=== PATIENT | female | born 1985 | race Caucasian/White ===

== ENCOUNTER 2017-02-15 15:37 | Observation (INO) | payer OTHER ==
[~2017-02-15 15:37] MED LIST: ONDANSETRON HCL 4 MG/2 ML VIAL IV PUSH ONE; PROPOFOL 200 MG/20 ML AMP IV ONE
[2017-02-15 16:00] VITALS: BP 126/71; PULSE 75; RESP 16; TEMP 98.4; O2SAT 98
[2017-02-15] MEDS ORDERED: BUPIVACAINE/EPINEPHRINE 0.25% 50 ML VIAL ONE (16:33)
[2017-02-15] MEDS ORDERED: SODIUM CHLORIDE 0.9% FLUSH 10 ML FLUSH IV FLUSH PRN (16:45)
[2017-02-15] MEDS ORDERED: ACETAMINOPHEN/HYDROcodone 325 MG/5 MG TAB PO PRN (16:45)
[2017-02-15] MEDS ORDERED: ONDANSETRON HCL 4 MG/2 ML VIAL IV PRN (16:45)
[2017-02-15] MEDS ORDERED: HYDROmorphone HCL PF 1 MG/ML VIAL IV PRN (16:45)
--- NOTE | 2017-02-15 17:08 | MH ---
cc: LINDSAY SHELL MD DATE OF ADMISSION 02/15/2017 CHIEF COMPLAINT Abdominal pain. HISTORY OF PRESENT ILLNESS This is a 31-year-old female who developed severe generalized upper abdominal pain yesterday which localized to the right lower quadrant overnight and this morning. She had some nausea but no vomiting. No change in bowel habits. She has had a cholecystectomy and a in the past. She presented to the emergency department in [place], was noted to have rebound tenderness and severe tenderness at McBurney point, as well as leukocytosis and a CT scan confirming acute appendicitis. PAST MEDICAL HISTORY None. PAST SURGICAL HISTORY 1. Cholecystectomy. 2. ALLERGIES AZITHROMYCIN. MEDICATIONS Home medications, none. FAMILY HISTORY Noncontributory. SOCIAL HISTORY Occasional alcohol use. No tobacco use. REVIEW OF SYSTEMS 10-point review of systems negative except as mentioned the HPI. PHYSICAL EXAMINATION GENERAL: Obese, pleasant female not in distress. VITAL SIGNS: Temperature 98.4, heart rate 75, blood pressure 126/71. HEAD: Normocephalic, atraumatic. EYES: Pupils equal, react to light bilaterally. LUNGS: Clear to auscultation. No wheezing or rhonchi. CARDIOVASCULAR: Regular rate and rhythm. ABDOMEN: Obese, well-healed port site incisions. Moderate to severe tenderness to deep palpation in the right lower quadrant. Mild tenderness in the left lower quadrant. Otherwise soft and nontender. EXTREMITIES: No cyanosis or edema. LABORATORY DATA White blood count at the [place] ER is 15,000. IMAGING STUDIES Showed a dilated fluid-filled appendix with surrounding inflammatory change indicating acute appendicitis . ASSESSMENT/PLAN A 31-year-old female with evaluation consistent with acute appendicitis. I recommend we proceed to the operating room for laparoscopic possible open appendectomy. I discussed details and risks with the patient and her significant other. We will proceed tonight when the operating room is available. Lindsay Shell MD JPD/KK /4:36 PM /4:59 PM
[2017-02-15] MEDS ORDERED: MIDAZOLAM HCL 2 MG/2 ML VIAL ONE (17:56)
[2017-02-15] MEDS ORDERED: PIPERACIL-TAZO 3.375 GM PREMIX 50 ML IV SCH (18:00)
[2017-02-15] MEDS ORDERED: ACETAMINOPHEN 1000 MG/100 ML VIAL IV ONE (18:24)
[2017-02-15] MEDS ORDERED: SUGAMMADEX SODIUM 200 MG/2 ML VIAL IV PUSH ONE ×2 (18:24)
--- NOTE | 2017-02-15 19:09 | PD.OP ---
cc: Yasmani Hood MD Operative Report Date of Surgery: February 15, 2017 Preoperative Diagnosis: (1) Appendicitis, acute Postoperative Diagnosis: (1) Appendicitis, acute Procedure: Laparoscopic appendectomy Anesthesia: GETA Surgeon: Yasmani Hood Surgical Services Coordinator(s): Mayco MORALES Operation and Findings: EBL: 5 cc Complications: None apparent Operative findings: Distended inflamed appendix. No purulence. Some omental adhesions in the lower midline and right upper quadrant. The abdominal wall. Procedure in detail: The patient was taken to the operating room placed in the supine position with left arm tucked. General endotracheal anesthesia was induced and the abdomen was prepped and draped in usual sterile fashion. Surgical timeout was performed to verify correct patient procedure and site. Perioperative antibiotics were administered as necessary. Local anesthetic was injected in the skin and subcutaneous tissue in the left lower abdomen 5 mm incision made. Using the 5 mm Optiview trocar with laparoscope the abdomen was directly entered. Was then insufflated to 15 mmHg with CO2 gas which the patient tolerated well. The patient was then placed in Trendelenburg position and turned slightly to the left. A 12 mm port was placed under laparoscopic visualization of suprapubic area and a 5 mm port to the right of the umbilicus. Attention was turned to the right lower quadrant and the appendix was distended and inflamed. There was no purulent fluid.. There were some omental adhesions to the abdominal wall in the lower midline and in the right upper abdomen. These were not taken down and did not appear to be causing any issues. The mesoappendix was taken down with the Harmonic scalpel. Two #1 PDS Endoloops were placed at the base the appendix and the appendix transected with Harmonic scalpel. It was then removed using an Endo Catch bag. The appendiceal stump was intact with no leakage. There was no purulent fluid identified in the abdomen was allowed to desufflate. The fascia at the 12 mm port site was closed with 2 simple interrupted 0 Vicryl sutures using the crossbow fascial closure device. Skin closed with subcuticular Monocryl as well as Dermabond. The patient tolerated the procedure well was extubated and taken to PACU in stable condition. Yasmani Hood MD February 15, 2017 19:09
[2017-02-15] MEDS ORDERED: fentaNYL CITRATE 250 MCG/5 ML AMP ONE (19:23)
[2017-02-15] MEDS ORDERED: *MEPERIDINE 25 MG INJ VIAL PERIprocedural Use ONLY ONE (19:24)
[2017-02-15] MEDS ORDERED: *PROMETHAZINE 25 MG/ML VIAL PERIprocedural use ONLY ONE (19:29)
[2017-02-15] MEDS ORDERED: DO NOT ADM ANY ANTICOAGULANT DRUGS PRN (19:45)
[2017-02-15] MEDS: SODIUM CHLOR 0.9% 1000 ML INJ 1,000 ML IV SCH (19:45)
[2017-02-15] MEDS ORDERED: *morphine SULFATE 8 MG/ML PERIprocedure ONLY ONE (19:48)
[2017-02-15 20:00] VITALS: O2SAT 95
[2017-02-15] MEDS: SODIUM CHLORIDE 0.9% FLUSH 10 ML FLUSH IV FLUSH SCH (20:00)
[2017-02-15] MEDS: ACETAMINOPHEN/HYDROcodone 325 MG/5 MG TAB PO PRN (20:36)
[2017-02-15 20:40] VITALS: BP 118/66; PULSE 72; RESP 18; TEMP 97.3; O2SAT 93
[2017-02-16] VITALS: BP 103/60; PULSE 79; RESP 18; TEMP 98.4; O2SAT 94
[2017-02-16] MEDS: ACETAMINOPHEN/HYDROcodone 325 MG/5 MG TAB PO PRN (00:23)
[2017-02-16 04:00] VITALS: BP 102/65; PULSE 91; RESP 18; TEMP 97.2; O2SAT 94
[2017-02-16] MEDS: SODIUM CHLOR 0.9% 1000 ML INJ 1,000 ML IV SCH (05:50)
[2017-02-16 08:00] VITALS: BP 102/65; PULSE 127; RESP 20; TEMP 97.1; O2SAT 94
[2017-02-16] MEDS ORDERED: HYDR-3516 PO (08:14)
--- NOTE | 2017-02-16 08:15 | HHI.PR ---
Subjective Subjective Notes Doing well post op. Objective Vitals/I&O Vital Signs Date Time Temp Pulse Resp B/P Pulse Ox O2 Delivery O2 Flow Rate FiO2 02/16/17 08:00 97.1 127 20 102/65 94 02/15/17 20:00 Nasal Cannula 3 Narrative Exam NAD Abd: soft, post op ttp, inc c/d/i A/P Assessment and Plan 31 yo F POD 1 s/p lap appy Stable post op. D/c home. Reg diet. Activity- no heavy lifting. Rx lortab. F/u in two weeks. Yasmani Hood MD February 16, 2017 08:15
[2017-02-16] MEDS: SODIUM CHLORIDE 0.9% FLUSH 10 ML FLUSH IV FLUSH SCH (08:45)
[2017-02-16 08:53] VITALS: PULSE 90
== END 2017-02-16 10:29 | disposition home or self-care (01) ==
LOC: HOR 15:37 → N07A 15:54 → INTOOBSV 15:54
PROVIDERS: ADMIT Surgery; ATTEND Surgery
DX: K35.80 Unspecified acute appendicitis (principal); K66.0 Peritoneal adhesions (postprocedural) (postinfection)
CPT/HCPCS: 00840; 44970; 74177; 80053; 81001; 83690; 84702; 85025; 88304; 96361; 96374; 96375; 99285; G0378; J0131; J1170; J2175; J2250; J2270; J2405; J2543; J2550; J3010; J7030; Q9963; Q9967; 99281